=== PATIENT | female | born 1990 | race Caucasian/White ===

== ENCOUNTER 2017-07-08 22:19 | Emergency (ER) | payer OTHER ==
[~2017-07-08] VITALS: Ht 154.9 cm; Wt 77.1 kg
[~2017-07-08 22:19] MED LIST: ALPR2TAB2 PO; ESCI10TA PO
[2017-07-08 22:20] VITALS: BP_SYST 131
[2017-07-08] MEDS ORDERED: KETOROLAC TROMETHAMINE 15 MG VIAL IVP ONE (23:00)
[2017-07-08 23:17] LABS: BILIRUBIN,URINE NEGATIVE (NEGATIVE); BLOOD, URINE NEGATIVE (NEGATIVE); CLARITY/URINE CLEAR (CLEAR); COLOR,URINE YELLOW (YELLOW); GLUCOSE,URINE NEGATIVE (NEGATIVE); KETONES,URINE NEGATIVE (NEGATIVE); LEUKOCYTE ESTERASE ,URINE NEGATIVE (NEGATIVE); NITRITE, URINE NEGATIVE (NEGATIVE); PH,URINE 5.5 (5.0-8.0); PROTEIN URINE NEGATIVE (NEGATIVE); UROBILINOGEN,URINE 0.2 (0.2-1.0)
[2017-07-08 23:30] LABS: BASOPHILS # (AUTO) 0.3 K/uL (0.0-0.2); BASOPHILS % (AUTO) 2.7 % (0.0-2.0); EOSINOPHILS # (AUTO) 0.3 K/uL (0.0-0.4); EOSINOPHILS % (AUTO) 2.9 % (0.0-4.0); HEMATOCRIT 41.6 % (36-48); HEMOGLOBIN 13.4 g/dL (12.0-16.0); LYMPHOCYTES # (AUTO) 3.6 K/uL (1.0-5.5); LYMPHOCYTES % (AUTO) 33.2 % (20.5-51.5); MEAN CORPUSCULAR HEMOGLOBIN 25 pg (27-31); MEAN CORPUSCULAR HGB CONC 32 % (32-36); MEAN CORPUSCULAR VOLUME 76 fL (79.0-98.0); MONOCYTES # (AUTO) 0.7 K/uL (0.0-1.0); MONOCYTES % (AUTO) 6.1 % (1.7-9.3); NEUTROPHILS % (AUTO) 55.1 % (40.0-70.0); PLATELET COUNT (AUTO) 335 K/uL (130-430); RED BLOOD CELL COUNT(AUTO) 5.46 MIL/uL (4.2-6.2); RED CELL DISTRIBUTION WIDTH 12.4 % (9.0-15.0); WHITE BLOOD COUNT (AUTO) 10.9 K/uL (4.8-10.8)
[2017-07-08 23:43] LABS: CALCIUM 9.7 mg/dL (8.4-11.0); CREATININE 0.92 mg/dL (0.55-1.30); POTASSIUM 3.6 mmol/L (3.5-5.1)
[2017-07-08 23:47] LABS: ALBUMIN 4.3 g/dL (3.4-4.8); TOTAL BILIRUBIN 0.3 mg/dL (0.0-1.0)
[2017-07-09 00:33] VITALS: BP_SYST 136
== END 2017-07-09 00:33 | disposition home or self-care (01) ==
LOC: SED 22:19
DX: F41.9 Anxiety disorder, unspecified (principal); E11.9 Type 2 diabetes mellitus without complications; I10 Essential (primary) hypertension; J45.909 Unspecified asthma, uncomplicated; L93.0 Discoid lupus erythematosus; Z90.49 Acquired absence of other specified parts of digestive tract
CPT/HCPCS: 36415; 71045; 80053; 81003; 84484; 85025; 93005; 96374; 99285; J1885

== ENCOUNTER 2018-08-07 20:58 | Emergency (ER) | payer OTHER ==
[~2018-08-07] VITALS: Ht 154.9 cm; Wt 89.8 kg
[2018-08-07 21:16] VITALS: BP_SYST 166
== END 2018-08-07 22:00 | disposition left against medical advice (07) ==
LOC: SED 20:58
DX: R10.30 Lower abdominal pain, unspecified (principal); F41.9 Anxiety disorder, unspecified; J45.909 Unspecified asthma, uncomplicated; E11.9 Type 2 diabetes mellitus without complications; I10 Essential (primary) hypertension; Z88.6 Allergy status to analgesic agent; Z79.899 Other long term (current) drug therapy; Z53.21 Procedure and treatment not carried out due to patient leaving prior to being seen by health care provider

== ENCOUNTER 2018-11-13 16:08 | Emergency (ER) | payer OTHER ==
[~2018-11-13] VITALS: Ht 154.9 cm; Wt 86.2 kg
[2018-11-13 16:10] VITALS: BP_SYST 148
--- NOTE | 2018-11-13 16:15 | NUR ---
Patient to ER bed 1 to gown for evaluation. Side rails up.
[2018-11-13] MEDS ORDERED: NACL 0.9% 1,000 ML IV ONE (16:24)
--- NOTE | 2018-11-13 16:25 | NUR ---
ER Dr. NICOLE at bedside examining patient.
[2018-11-13] MEDS ORDERED: MAG HYDROX/AL HYDROX/SIMETH 30 ML, DICYCLOMINE HCL 20 MG, LIDOCAINE VISCOUS 2% 15ML (PO... PO ONE ×3 (16:30)
[2018-11-13] MEDS ORDERED: ASPIRIN 81 MG TAB.CHEW PO ONE (16:30)
--- NOTE | 2018-11-13 16:35 | NUR ---
Emdond craig in [facility] - 11/13/18 at 1756 by ETIENNE PATIENT LEFT TO CT VIA [facility]ITA IN STABLE CONDITION.
--- NOTE | 2018-11-13 16:40 | NUR ---
PATIENT CAME IN COMPLAINING OF CHEST PAIN THAT RADIATED TO BACK. PATIENT COMPLAINING OF PAIN /. PATIENT HAS HISTORY OF ANXIETY. PATIENT STATES SHE GETS LIKE THIS WHEN SHE GETS ANXIOUS. PATIENT STATES SHE TAKES XANAX TWICE A DAY. PATIENT COMPLAINING OF LITTLE SOB. PATIENT DENIES NAUSEA AND VOMITING. PATIENT ALERT AND ORIENTED X4.
--- NOTE | 2018-11-13 16:45 | NUR ---
# 20 gauge angiocath placed to LEFT AC. Use of asceptic technique. Opsite placed over site. Blood return noted. Blood for lab drawn from site. Flushed with 10 cc of normal saline. No evidence of infiltration noted. Patient tolerated well.
--- NOTE | 2018-11-13 16:56 | NUR ---
PATIENT GETTING X RAY IN BED.
--- NOTE | 2018-11-13 16:56 | NUR ---
Edmond craig in [facility] - 11/13/18 at 1756 by ETIENNE PATIENT GETTING X RAY IN BED.
[2018-11-13 17:05] LABS: BILIRUBIN,URINE NEGATIVE (NEGATIVE); BLOOD, URINE NEGATIVE (NEGATIVE); CLARITY/URINE CLEAR (CLEAR); COLOR,URINE YELLOW (YELLOW); GLUCOSE,URINE 1+ (NEGATIVE); KETONES,URINE NEGATIVE (NEGATIVE); LEUKOCYTE ESTERASE ,URINE NEGATIVE (NEGATIVE); NITRITE, URINE NEGATIVE (NEGATIVE); PROTEIN URINE NEGATIVE (NEGATIVE); UROBILINOGEN,URINE 0.2 (0.2-1.0)
[2018-11-13 17:05] LABS: BASOPHILS # (AUTO) 0.1 K/uL (0.0-0.2); BASOPHILS % (AUTO) 1.3 % (0.0-2.0); EOSINOPHILS # (AUTO) 0.4 K/uL (0.0-0.4); EOSINOPHILS % (AUTO) 3.8 % (0.0-4.0); HEMATOCRIT 37.9 % (36-48); HEMOGLOBIN 11.7 g/dL (12.0-16.0); LYMPHOCYTES # (AUTO) 2.7 K/uL (1.0-5.5); LYMPHOCYTES % (AUTO) 28.9 % (20.5-51.5); MEAN CORPUSCULAR HEMOGLOBIN 21 pg (27-31); MEAN CORPUSCULAR HGB CONC 31 % (32-36); MEAN CORPUSCULAR VOLUME 67 fL (79.0-98.0); MONOCYTES # (AUTO) 0.6 K/uL (0.0-1.0); NEUTROPHILS # (AUTO) 5.7 K/uL (1.8-7.7); PLATELET COUNT (AUTO) 372 K/uL (130-430); RED BLOOD CELL COUNT(AUTO) 5.65 MIL/uL (4.2-6.2); RED CELL DISTRIBUTION WIDTH 16.6 % (9.0-15.0); WHITE BLOOD COUNT (AUTO) 9.5 K/uL (4.8-10.8)
[2018-11-13 17:13] LABS: CALCIUM 9.5 mg/dL (8.4-11.0); CREATININE 0.81 mg/dL (0.55-1.30)
--- NOTE | 2018-11-13 17:15 | NUR ---
PATIENT BACK FROM RADIOLOGY IN STABLE CONDITION.
[2018-11-13 17:17] LABS: ALBUMIN 3.9 g/dL (3.4-4.8); PROTHROMBIN TIME 9.9 SECS (9.5-12.5); TOTAL BILIRUBIN 0.2 mg/dL (0.0-1.0)
[2018-11-13] MEDS ORDERED: LORazepam 2 MG/ML VIAL (FOR ER USE) IVP ONE (17:45)
--- NOTE | 2018-11-13 18:14 | NUR ---
PATIENT WAS ASKING IF SHE COULD TAKE HER OWN ZOFRAN AND XANAX. DR NICOLE SAID NO. PATIENT AWARE. GAVE PATIENT ATIVAN. PATIENT RESTING IN BED.
[2018-11-13] MEDS ORDERED: NACL 0.9% 2,000 ML IV ONE (18:15)
--- NOTE | 2018-11-13 18:33 | NUR ---
DR NICOLE AT BEDSIDE TALKING TO PATIENT.
--- NOTE | 2018-11-13 19:11 | NUR ---
ENDORSED CARE TO AFSHIN BUSH. PATIENT RESTING IN BED WAITING FOR REST OF FLUIDS TO BE INFUSED.
[2018-11-13 19:35] VITALS: BP_SYST 119
--- NOTE | 2018-11-13 19:35 | NUR ---
Patient given written and verbal discharge instructions and verbalizes understanding. ER MD Morris discussed with patient the results and treatment provided. Patient in stable condition. ID arm band removed. IV catheter removed intact and dressing applied, no active bleeding. Rx of ativan, zofran given. Patient educated on pain management and to follow up with PMD. Pain Scale 0/10. Opportunity for questions provided and answered. Medication side effect fact sheet provided.
== END 2018-11-13 19:35 | disposition home or self-care (01) ==
LOC: SED 16:08
DX: R07.89 Other chest pain (principal); E11.65 Type 2 diabetes mellitus with hyperglycemia; F41.9 Anxiety disorder, unspecified; J45.909 Unspecified asthma, uncomplicated; I10 Essential (primary) hypertension; Z88.6 Allergy status to analgesic agent; Z79.899 Other long term (current) drug therapy
CPT/HCPCS: 36415; 71045; 80053; 81003; 82150; 82550; 83605; 83690; 84484; 85025; 85610; 85730; 87040; 93005; 96361; 96374; 99284; J2001; J2060; J7030

== ENCOUNTER 2019-03-11 19:18 | Emergency (ER) | payer OTHER ==
[~2019-03-11] VITALS: Ht 154.9 cm; Wt 86.2 kg
[2019-03-11 19:29] VITALS: BP_SYST 154
--- NOTE | 2019-03-11 19:29 | NUR ---
Patient triaged and placed in waiting room. VSS and patient appears in no acute distress at this time. Accompanied by , awaiting available bed, and MD notified of need for MSE.
--- NOTE | 2019-03-11 21:35 | NUR ---
called for bed placement, patient not in waiting room
--- NOTE | 2019-03-11 21:40 | NUR ---
called for bed placement, patient not in waiting room
--- NOTE | 2019-03-11 21:41 | NUR ---
called for bed placement, patient not in waiting room patient left without being seen
== END 2019-03-11 21:41 | disposition left against medical advice (07) ==
LOC: SED 19:18
DX: R06.02 Shortness of breath (principal); Z53.21 Procedure and treatment not carried out due to patient leaving prior to being seen by health care provider

== ENCOUNTER 2019-05-04 18:59 | Emergency (ER) | payer OTHER ==
[~2019-05-04] VITALS: Ht 154.9 cm; Wt 86.2 kg
[2019-05-04 19:17] VITALS: BP_SYST 145
--- NOTE | 2019-05-04 19:22 | NUR ---
Pt placed to ER waiting room in stable condition.
--- NOTE | 2019-05-04 20:29 | NUR ---
Specimen for influenza collected from Right nares and sent to lab.
--- NOTE | 2019-05-04 21:07 | NUR ---
Patient to ER bed 8 to gown for evaluation. Side rails up.
--- NOTE | 2019-05-04 21:32 | NUR ---
Patient complains of cough, body aches, and "crackles" when she breathes in for about 3 days. patient has hx of lupus and reported she wanted to get checked if it was a flare up. Pt states she had a come chest pain when coughing. No other injuries/complaints per patient or noted.
--- NOTE | 2019-05-04 22:01 | NUR ---
ER Dr. Neri at bedside examining patient.
--- NOTE | 2019-05-04 23:10 | NUR ---
ER Dr. Neri at bedside examining patient.
[2019-05-04] MEDS ORDERED: AMOXICILLIN 500 MG CAPSULE PO ONE (23:30)
--- NOTE | 2019-05-04 23:35 | NUR ---
Patient given written and verbal discharge instructions and verbalizes understanding. ER MD Neri discussed with patient the results and treatment provided. Patient in stable condition. ID arm band removed. Rx of Meliton Ho, Amoxicillin given. Patient educated on pain management and to follow up with PMD. Pain Scale 0. Opportunity for questions provided and answered. Medication side effect fact sheet provided.
[2019-05-04 23:44] VITALS: BP_SYST 136
== END 2019-05-04 23:35 | disposition home or self-care (01) ==
LOC: SED 18:59
DX: J40 Bronchitis, not specified as acute or chronic (principal); E11.9 Type 2 diabetes mellitus without complications; F41.9 Anxiety disorder, unspecified; Z88.5 Allergy status to narcotic agent; Z88.6 Allergy status to analgesic agent
CPT/HCPCS: 36415; 71045; 86710; 99284